=== PATIENT | male | born 1945 | race Caucasian/White ===

== ENCOUNTER 2019-06-12 16:34 | Outpatient (CLI) | payer MEDICARE, SELFPAY ==
--- NOTE | ~2019-06-12 | XR_ITS ---
EXAMINATION: XR hip RT min 2V EXAM DATE: 06/12/2019 16:59 INDICATION: No known recent injury provided at this time. Pain of the right hip. TECHNIQUE: Right hip frontal, 'frog leg' projections for interpretation. Comparison is made to prior examination from 03/19/2018. FINDINGS: There is moderate to severe right hip osteoarthritis with complete loss of the joint space superiorly. There is subchondral cyst formation at both the acetabulum and femoral head, appears to h ave progressed compared to prior study. There are no acute fractures or dislocations identified. The re is no subcutaneous gas. The soft tissue is unremarkable. There are no radiopaque foreign bodies . IMPRESSION: Moderate to severe right hip osteoarthritis. Reviewed, dictated and finalized at location A.
--- NOTE | 2019-06-12 16:51 | ECG_ITS ---
Measurements Intervals [place] Rate: 52 P: 40 AR: 190 QRS: 7 QRSD: 102 T: 26 QT: 445 QTc: 416 Interpretive Statements SINUS BRADYCARDIA BORDERLINE ECG Electronically Signed On 06-12-2019 17:25:45 CDT by Duane Quiroz D.O.
== END 2019-06-12 16:35 | disposition home or self-care (01) ==
LOC: CHSIMG 16:39
PROVIDERS: PCP Internal Medicine; Visit Provider Internal Medicine
DX: I49.9 Cardiac arrhythmia, unspecified (principal); M25.551 Pain in right hip
CPT/HCPCS: 73502; 93005

== ENCOUNTER 2019-08-19 10:49 | Outpatient (RCR) | payer MEDICARE, SELFPAY ==
--- NOTE | 2019-08-19 15:04 | PTOPEVAL ---
Thank you for referring Wellington Villarreal Sr. to [facility]. Please review, sign, date and return this plan of care SKYE. I agree with and certify that the following plan of care is medically necessary. Referring Physician Date Admitting Provider: Attending Provider: PHYSICIAN NOT ON STAFF Referring Provider: *PT Outpatient Evaluation Start: 08/19/19 11:04 Freq: Status: Active Protocol: Document 08/19/19 11:05 MARYELLEN (Rec: 08/19/19 11:53 MARYELLEN [id number]) Therapy Assessment Status Assessment Status Assessment Status Evaluation Evaluation Information Problem Diagnosis right SHAHID Onset 08/10/18 Subjective Information Pt. reports that he got rid of Query Text:As Reported By Patient/ his walker several days ago. Family He reports that he has been self sufficient for most things since surgery. He reports that his most difficult tasks are long distance walking. He reports that he has not returned to driving. 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 He reports that his goal is to return to walking normal. Prior Level of Function Activity Level (Last 3 Months) Occupation business senior civil engineer Hand Dominance Right Activity of Daily Living Ability Independent Indoor/Home Mobility Independent Community Mobility Independent Stairs Ability Independent Functional Cognition (Planning, Shopping Independent , Taking Medications) Cooking Yes Cleaning Yes Laundry Yes Shopping Yes Driving Yes Pain Assessment Pain Scale Pain Scale Used Numeric (1 - 10) Self Report Pain Assessment Right Hip(s) Reported Pain Level 1 Pain Frequency Continuous Pain Aggravating Factors Exercise/Activity Pain Score Pain Score 1: Self Report Lower Extremity Muscle Strength Testing General Lower Extremity Strength Gross Lower Extremity Strength right hip flexion 4-/5, left hip flexion 5/5, right hip abduction 3-/5, left hip abduction 4/5, bilateral knee flexion 5/5, bilateral knee exetnsion 5/5, bilateral ankle
== END 2019-09-12 13:16 | disposition home or self-care (01) ==
LOC: CHSPT 10:49
PROVIDERS: PCP Internal Medicine
DX: M16.11 Unilateral primary osteoarthritis, right hip (principal); Z47.1 Aftercare following joint replacement surgery; Z96.641 Presence of right artificial hip joint
CPT/HCPCS: 97110; 97112; 97161

== ENCOUNTER 2019-12-25 08:35 | Outpatient (CLI) | payer MEDICARE, SELFPAY ==
--- NOTE | ~2019-12-25 | CT_ITS ---
EXAMINATION: CTA chest DATE: 12/25/2019 09:52 INDICATION: Thoracic aortic aneurysm TECHNIQUE: Computed tomographic angiography (CTA) of the chest was performed with 100 mL Omnipque-350 intravenous contrast. Maximum intensity projection 3D-reconstructions of the aorta and other arterie s were constructed by the technologist on a separate workstation. The dose-length product (DLP) was 5 35.77 mGy-cm. Automated exposure control and iterative reconstruction technique were employed. COMPARISON: 07/02/2018 FINDINGS: There is fusiform enlargement of the ascending thoracic aorta which measures 4.5 cm in maxi mum dimension. There is no dissection. The pulmonary arteries are well-opacified without evidence of pulmonary embolism. No pathologically enlarged thoracic lymph nodes are identified. The heart size is normal. There is mild dependent atelectasis. There is moderate thoracic spondylosis. IMPRESSION: 1. Stable fusiform aneurysm of the ascending thoracic aorta. No dissection. Reviewed, dictated and finalized at location A. [facility] ADMINISTRATOR
[2019-12-25 09:02] LABS: Estimated Glomerular Filt Rate > 60
== END 2019-12-25 08:36 | disposition home or self-care (01) ==
LOC: CHSIMG 08:37
PROVIDERS: PCP Internal Medicine; Visit Provider Internal Medicine
DX: I71.2 Thoracic aortic aneurysm, without rupture (principal)
CPT/HCPCS: 71275; Q9965

== ENCOUNTER 2020-03-19 08:41 | Outpatient (CLI) | payer MEDICARE, SELFPAY | END 2020-03-19 08:42 | disposition home or self-care (01) | LOC: CHSLAB 08:43 | PROVIDERS: PCP Internal Medicine; Visit Provider Specialist | DX: L82.1 Other seborrheic keratosis (principal) | CPT/HCPCS: 88305 ==

== ENCOUNTER 2020-12-14 07:23 | Outpatient (CLI) | payer MEDICARE, SELFPAY ==
--- NOTE | ~2020-12-14 | CT_ITS ---
EXAMINATION: CTA chest EXAM DATE: 12/14/2020 08:28 INDICATION: Thoracic aorta aneurysm F/u up for thoracic AA x 4 years. TECHNIQUE: Spiral CT of the chest following intravenous injection of 75 mL Omnipaque 350. Axial, cor onal and sagittal images of the chest were reviewed. Coronal maximum intensity pixel images of chest reviewed. Maximum intensity projection 3-D reconstructions of the aorta were created by the amaya styles on dedicated workstation. The dose-length product (DLP) for this examination was 419.37 mGy-cm . The exposure was tailored according to patient size (auto mA exposure control), and iterative tracey nstruction (ASIR) was used as additional dose reduction technique. Comparison is made to prior examin ation from 12/25/2019, 08/18/2015. FINDINGS: The aortic root measures 4.3 cm in diameter, and the ascending aorta measures 4.7 cm in doyle meter. These dimensions are unchanged compared to previous examinations when measured at same locatio ns. There are no central pulmonary emboli. The descending thoracic aorta is normal in caliber. There is mild emphysema. Small amount of basilar subpleural banding, lungs otherwise clear. There are no p leural or pericardial effusions. Tracheobronchial tree is patent. There is no mediastinal, hilar or axillary lymphadenopathy. There is no pneumothorax. Heart normal in size. No evidence of cor onary arterial calcification. Upper abdomen is unremarkable. Kaem-ci-covejwev IMPRESSION: 1. Stable ascending aortic 4.7 cm aneurysm. 2. Mild emphysema. Reviewed, dictated and finalized at location B.
[2020-12-14 07:43] LABS: Estimated Glomerular Filt Rate > 60
== END 2020-12-14 07:24 | disposition home or self-care (01) ==
LOC: CHSIMG 07:25
PROVIDERS: PCP Internal Medicine; Visit Provider Internal Medicine
DX: I71.2 Thoracic aortic aneurysm, without rupture (principal)
CPT/HCPCS: 71275; Q9967

== ENCOUNTER 2021-09-12 10:55 | Outpatient (CLI) | payer MEDICARE, SELFPAY ==
--- NOTE | ~2021-09-12 | CT_ITS ---
EXAMINATION: CTA chest PE protocol DATE: 09/12/2021 14:55 INDICATION: Elevated D-Dimer, SOB, light headed, dizziness TECHNIQUE: Computed tomography angiography (CTA) of the chest was performed with 100 mL Omnipaque-350 intravenous contrast timed to evaluate the pulmonary arteries. Coronal maximum intensity projection 3D-reconstructions were created by the technologist. The dose-length product (DLP) was 538.71 mGy-cm. Automated exposure control and iterative reconstruction technique were employed. COMPARISON: 12/14/2020. FINDINGS: Study quality: Adequate. Pulmonary arteries: No pulmonary emboli detected. Thoracic aorta: Aortic root measures 4.4 cm. Ascending aorta measures 4.7 cm. Lung parenchyma and airways: Senescent changes with minimal bibasilar scar/atelectasis. Thoracic inlet, axillae and chest wall: Unremarkable. Mediastinum: Normal. Heart and pericardium: Normal. Coronary artery calcifications: Mild. Pleura: Unremarkable. Upper abdomen: No significant finding. Bones: No acute osseous finding. IMPRESSION: No CT evidence of acute pulmonary embolus. Stable 4.7 cm ascending aortic aneurysm. Reviewed, dictated and finalized at location K. IMPRESSION: No CT evidence of acute pulmonary embolus. Stable 4.7 cm ascending aortic aneur ysm.
--- NOTE | ~2021-09-12 | XR_ITS ---
EXAMINATION: XR chest 2V 09/12/2021 12:03 INDICATION: Dizziness and shortness of breath PROCEDURE: 2 view chest COMPARISON: Comparison to multiple prior studies sequentially, with oldest reviewed study dated 08/03. FINDINGS: The lungs are clear. The cardiomediastinal silhouette is within normal limits. There are no pleural effusions. There is no pneumothorax suspected. IMPRESSION: 1: NO ACUTE CARDIOPULMONARY DISEASE. Reviewed, dictated and finalized at location A.
--- NOTE | 2021-09-12 11:34 | ECG_ITS ---
Measurements Intervals [place] Rate: 53 P: 13 WV: 176 QRS: -20 QRSD: 105 T: 8 QT: 428 QTc: 403 Interpretive Statements SINUS BRADYCARDIA VENTRICULAR PREMATURE COMPLEX INFERIOR INFARCT, AGE INDETERMINATE BASELINE ARTIFACT- I, III ABNORMAL ECG Electronically Signed On 09-12-2021 12:22:02 CDT by Duane Quiroz D.O.
[2021-09-12 12:24] LABS: Add Urine Microscopic? NO; Appearance Urine Clear (Clear); Basophils Absolute Auto 0.05 K/mm3 (0.00-0.10); Basophils Percent Auto 0.8 % (0.0-1.0); Bilirubin Urine Negative (Negative); Blood Urine Negative (Negative); Color Urine Yellow (Yellow); Eosinophils Percent Auto 3.2 % (1.0-6.0); Glucose Urine UA Negative (Negative); Hematocrit 37.6 % (37.0-46.0); Immature Granulocyte Absolute 0.06 K/mm3 (0.00-0.00); Immature Granulocyte Percent A 0.9 % (0.0-0.0); Ketones Urine Negative (Negative); Leukocyte Esterase Ur Negative (Negative); Lymphocytes Absolute Auto 1.22 K/mm3 (1.10-4.50); Lymphocytes Percent Auto 19.3 % (18.0-42.0); Mean Corpuscular HGB Conc 31.9 g/dL (32.0-36.0); Mean Corpuscular Hemoglobin 33.3 pg (27.0-31.0); Mean Corpuscular Volume 104.4 fL (78.0-102.0); Mean Platelet Volume 10.7 fl (8.7-11.0); Monocytes Absolute Auto 0.65 K/mm3 (0.10-0.90); Monocytes Percent Auto 10.3 % (2.0-11.0); Neutrophils Absolute Auto 4.2 K/mm3 (1.7-7.2); Neutrophils Percent Auto 65.5 % (50.0-70.0); Nitrate Urine Negative (Negative); Platelet Count Result 241 K/mm3 (150-420); Protein Urine Negative (Negative); Red Cell Distribution Width 13.5 % (11.6-14.4); Specific Grav Ur 1.025 (1.010-1.020); Urobilinogen Urine 0.2 mg/dL (0.2-1.0); White Blood Count 6.3 K/mm3 (4.8-10.8)
[2021-09-12 12:42] LABS: D Dimer 0.62 mg/L (0.19-0.50)
[2021-09-12 13:01] LABS: SARS-CoV-2 RNA PCR Negative (Negative)
[2021-09-12 13:04] LABS: Alanine Aminotransferase 20 U/L (16-63); Albumin Level 3.7 g/dL (3.4-5.0); Alkaline Phosphatase 68 U/L (46-116); Anion Gap 6 mmol/L (8-16); Aspartate Amino Transferase 20 U/L (15-37); Bilirubin,Total 0.5 mg/dL (0.00-1.00); Blood Urea Nitrogen 27 mg/dL (7-18); Calcium 9.2 mg/dL (8.5-10.1); Carbon Dioxide 30 mmol/L (21-32); Chloride 106 mmol/L (98-108); Creatine Kinase 102 U/L (39-308); Estimated Glomerular Filt Rate > 60; Glucose 93 mg/dL (70-99); Magnesium 2.8 mg/dL (1.8-2.4); Osmolality Calculated 299 mOsm/kg (285-295); Potassium 4.5 mmol/L (3.5-5.1); Sodium 142 mmol/L (136-145); Thyroid Stimulating Hormone 1.03 uIU/mL (0.36-3.74); Total Protein 7.2 g/dL (6.4-8.2); Troponin I 9.9 ng/L (0.00-60.4)
[2021-09-12 13:44] LABS: Ferritin 353 ng/mL (26-388); Iron 84 ug/dL (65-175); Percent Iron Saturation 29 % (12-57)
== END 2021-09-12 10:56 | disposition home or self-care (01) ==
PROVIDERS: PCP Nurse Practitioner Family; Visit Provider Nurse Practitioner Family
DX: R42 Dizziness and giddiness (principal); I95.9 Hypotension, unspecified; R06.02 Shortness of breath; D64.9 Anemia, unspecified; R53.83 Other fatigue; R79.1 Abnormal coagulation profile; Z20.822 Contact with and (suspected) exposure to COVID-19
CPT/HCPCS: 36415; 71046; 71275; 80053; 81003; 82550; 82553; 82728; 83540; 83550; 83735; 84443; 84484; 85025; 85380; 87086; 93005; C9803; Q9967; U0003; U0005

== ENCOUNTER 2021-09-19 08:54 | Outpatient (CLI) | payer MEDICARE, SELFPAY | END 2021-09-19 08:55 | disposition home or self-care (01) | PROVIDERS: PCP Internal Medicine; Visit Provider Internal Medicine | DX: R00.1 Bradycardia, unspecified (principal) | CPT/HCPCS: 93270 ==

== ENCOUNTER 2022-08-23 06:17 | Day surgery (SDC) | payer MEDICARE, SELFPAY ==
[2022-08-18 12:16] VITALS: BMI 27.7
[2022-08-23 06:56] VITALS: BP 125/76; PULSE 80; RESP 20; TEMP 36.5; O2SAT 100; BMI 27.8
[2022-08-23] MEDS: LACTATED RINGERS 1,000 ML 150 ML IV CONT (07:09)
--- NOTE | 2022-08-23 07:45 | WPDANESEPPF ---
Anes - Initial Pre Proc Eval Procedure: Operation Date: 08/23/22 08:30 Proposed Procedures p Screening Colonoscopy - Wellington Tapia DO Date/Time: 08/23/22 07:45 Surgeon: Wellington Tapia DO Pre Op Diagnosis: neoplasm screening Patient Data Age: 77 Gender: M Height: 1.63 m Weight: 73.5 kg Last Vital Signs Temp 97.7 F 08/23/22 06:56 Pulse 80 08/23/22 06:56 Resp 20 08/23/22 06:56 BP 125/76 08/23/22 06:56 Pulse Ox 100 08/23/22 06:56 O2 Del Method Room Air 08/23/22 06:56 Allergies Allergy/AdvReac Type Severity Reaction Status Date / Time No Known Allergies Allergy Verified 08/23/22 06:55 Home Medications Medication Instructions Recorded Confirmed Type ascorbate calcium (vitamin C) 500 500 mg PO DAILY 03/31/19 08/18/22 History mg tablet hydrochlorothiazide 12.5 mg capsule 12.5 mg PO DAILY 03/31/19 08/18/22 History lisinopril 20 mg tablet 20 mg PO DAILY 03/31/19 08/18/22 History lovastatin 10 mg tablet 10 mg PO DAILY 03/31/19 08/18/22 History metoprolol succinate 25 mg 25 mg PO DAILY 03/31/19 08/18/22 History tablet,extended release 24 hr Patient hx anesthesia problems: none Family hx anesthesia problems: none Results Review: All pre-operative results and documents have been reviewed as part of the pre-operative evaluation. 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 HTN (hypertension) Hyperlipidemia Impaired fasting glucose Kidney stones Male erectile dysfunction Presbycusis Sleep apnea Testicular hypofunction Third degree hemorrhoids Thoracic aortic aneurysm Tinea unguium Surgical History Surgical History H/O colonoscopy H/O hemorrhoidectomy 1984 History of right hip replacement Left cataract removed Pituitary tumor removed Family History Family History Father Hypertension Mother Lung cancer Sibling Diabetes mellitus Renal failure Grandparent Diabetes mellitus Cerebrovascular accident Social History Social History Smoking status: Never smoker Alcohol intake: never Substance use: never Substance use type: does not use Living arrangements: alone Occupation/Education: occupation Additional occupation/education comments: [employer] Gender identity (if verbalized by the patient): Male Spiritual care concerns: No Anes - Eval Final PreProcedure Day of Procedure 08/23/22 07:45 Patient weight: normal Heart: regular rate and rhythm Lungs: clear to auscultation Airway: Mallampati scale class II Neurological: alert and oriented Last oral intake: >/= 8 hours ASA classification: III Emergent: no Anesthetic plan: proceed Anesthesia type and monitoring: general GIVS and standard monitoring Results Review: All pre-operative results and documents have been reviewed as part of the pre-operative evaluation. Informed Consent: The patient's anesthetic plan and its attendant risks and benefits were discussed with the patient/family/POA. Questions were solicited and answers provided to the satisfaction of the patient/family/POA.
--- NOTE | 2022-08-23 08:21 | PM.IMHP ---
H&P: HPI History of Present Illness Date/Time: 08/23/22 08:21 Chief Complaint: Screening colonoscopy Narrative: this is a 77-year-old man who presents for a colonoscopy. His last colonoscopy was about 11 years ago. He complaints of occasional hemorrhoid problems but denies any hematochezia or melena. He denies any family history of colon cancer. Review of Systems Review of Systems: All systems reviewed & are unremarkable except as noted in HPI and below Constitutional: Constitutional: Denies chills, Denies fever(s), Denies headache(s) and Denies weight loss Eyes: Eyes: Denies change in vision ENT: Denies dizziness, Denies headache(s), Denies neck mass and Denies throat swelling Cardiovascular: Cardiovascular: Denies chest pain, Denies lightheadedness and Denies dyspnea Respiratory: Respiratory: Denies cough, Denies dyspnea and Denies wheezing Gastrointestinal: Gastrointestinal: Denies abdominal pain, Denies change in bowel habits, Denies nausea and Denies vomiting Genitourinary: Genitourinary: Denies hematuria and Denies dysuria Musculoskeletal: Musculoskeletal: Reports as per HPI Integumentary/Breasts: Skin/Breast: Reports as per HPI Neurologic: Denies dizziness and Denies headache(s) Allergic/Immunologic: Allergic/Immunologic: Denies throat swelling and Denies wheezing [facility] Past Medical History Medical History Anemia 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 HTN (hypertension) Hyperlipidemia Impaired fasting glucose Kidney stones Male erectile dysfunction Presbycusis Sleep apnea Testicular hypofunction Third degree hemorrhoids Thoracic aortic aneurysm Tinea unguium Surgical History Surgical History H/O colonoscopy H/O hemorrhoidectomy 1984 History of right hip replacement Left cataract removed Pituitary tumor removed Family History Family History Father Hypertension Mother Lung cancer Sibling Diabetes mellitus Renal failure Grandparent Diabetes mellitus Cerebrovascular accident Social History Social History Smoking status: Never smoker Alcohol intake: never Substance use: never Substance use type: does not use Living arrangements: alone Occupation/Education: occupation Additional occupation/education comments: [employer] Gender identity (if verbalized by the patient): Male Spiritual care concerns: No Meds Home Medications and Allergies Home Medications Medication Instructions Recorded Confirmed Type ascorbate calcium (vitamin C) 500 500 mg PO DAILY 03/31/19 08/18/22 History mg tablet hydrochlorothiazide 12.5 mg capsule 12.5 mg PO DAILY 03/31/19 08/18/22 History lisinopril 20 mg tablet 20 mg PO DAILY 03/31/19 08/18/22 History lovastatin 10 mg tablet 10 mg PO DAILY 03/31/19 08/18/22 History metoprolol succinate 25 mg 25 mg PO DAILY 03/31/19 08/18/22 History tablet,extended release 24 hr Allergies Allergy/AdvReac Type Severity Reaction Status Date / Time No Known Allergies Allergy Verified 08/23/22 06:55 Vital Signs Vital Signs - 24 hr 08/23/22 06:56 Temperature 36.5 C Pulse Rate 80 Respiratory Rate 20 Blood Pressure 125/76 Pulse Oximetry 100 Oxygen Delivery Room Air Exam Const: General: no acute distress and alert Orientation/consciousness: patient oriented x3 HENMT: Head: normocephalic and atraumatic Ears: hearing grossly normal bilaterally Face/Nose/Sinus: Normal nares present Mouth: Yes Normal oral and palatal mucosa present Eyes: Periorbital: periorbital findings normal Sclera: sclerae normal EOM: EOMs intact bilaterally Neck: Neck: normal visual inspection, no lymphadenopathy and trachea midline Chest: Chest palpation & inspection: n
[2022-08-23 08:48] VITALS: BP 122/65; PULSE 51; RESP 18; O2SAT 99
[2022-08-23 09:00] VITALS: BP 122/71; PULSE 57; RESP 23; O2SAT 100
[2022-08-23 09:10] VITALS: BP 140/76; PULSE 57; RESP 21; O2SAT 100
== END 2022-08-23 09:18 | disposition home or self-care (01) ==
PROVIDERS: PCP Internal Medicine; Visit Provider Surgery
PROC: 0DJD8ZZ Inspection of Lower Intestinal Tract, Via Natural or Artificial Opening Endoscopic (ICD-10-PCS; CPT 45378; principal; 2022-08-23 08:30)
DX: Z12.11 Encounter for screening for malignant neoplasm of colon (principal); K57.30 Diverticulosis of large intestine without perforation or abscess without bleeding; K64.8 Other hemorrhoids; I10 Essential (primary) hypertension; G47.30 Sleep apnea, unspecified; I71.20 Thoracic aortic aneurysm, without rupture, unspecified
CPT/HCPCS: G0121; J2704; J7120

== ENCOUNTER 2022-09-18 08:20 | Outpatient (CLI) | payer MEDICARE, SELFPAY ==
--- NOTE | ~2022-09-18 | CT_ITS ---
EXAMINATION: CTA chest PE protocol DATE: 09/18/2022 09:53 INDICATION: Thoracic aortic aneurysm TECHNIQUE: Computed tomography (CT) pulmonary angiogram of the chest was performed with 100 mL Omnipa que-350 intravenous contrast. Additional 3D reconstructions utilizing coronal maximum intensity proje ction (MIP) were performed. Automated exposure control and iterative reconstruction technique were em ployed. The dose-length product was 474.11 mGy-cm. COMPARISON: 09/12/2021 FINDINGS: Excellent contrast opacification of the pulmonary arteries. There is mild streak artifact from dense contrast in the superior vena cava and right atrium. Mild scattered respiratory motion artifact which does not significantly limit evaluation. No pulmonary embolism. No pneumonia, pulmonary edema or ple ural effusion. Mild cardiomegaly. No pericardial effusion. Unchanged ascending thoracic aortic aneury sm which measures up to 4.7 cm in maximal diameter tapering to 3.7 x 3.4 cm at the arch immediately f ollowing the takeoff of the left subclavian artery. No pathologically enlarged thoracic lymphadenopat hy. Visualized upper abdomen is unremarkable. Moderate thoracic spondylosis. IMPRESSION: 1. No pulmonary embolism or other acute cardiopulmonary disease. 2. Unchanged 4.7 cm ascending thoracic aortic aneurysm. Reviewed, dictated and finalized at location B.
[2022-09-18 08:49] LABS: Estimated Glomerular Filt Rate > 60
== END 2022-09-18 08:21 | disposition home or self-care (01) ==
LOC: CHSIMG 08:21
PROVIDERS: PCP Internal Medicine; Visit Provider Internal Medicine
DX: I71.20 Thoracic aortic aneurysm, without rupture, unspecified (principal)
CPT/HCPCS: 71275; Q9967

== ENCOUNTER 2023-03-27 11:21 | Outpatient (CLI) | payer MEDICARE, SELFPAY ==
--- NOTE | 2023-04-30 09:50 | P.PCNHOL_ITS ---
Holter/Event Monitor Holter/Event Monitor Date of procedure: 03/27/23 Holter/Event Procedure: Event Monitor Indications: Syncope Conclusion: 1. 30 day event monitor between 03/27/23-04/25/23. This is an event-triggered m onitor only. There are 40 available transmissions for analysis. 2. Underlying rhythm is sinus rhythm. HR range 47-100 bpm in available transmissions. 3. There are occasional premature supraventricular complexes. No supraventricular tachycardia. 4. There are occasional premature ventricular complexes. No ventricular tachycardia. 5. No significant pauses greater than 2 seconds. 6. Patient reports 9 episodes of symptoms of heart racing, shortness of breath, and symptom other than listed which demonstrate the above.
== END 2023-03-27 11:22 | disposition home or self-care (01) ==
LOC: CHSCARD 11:23
PROVIDERS: PCP Internal Medicine; Visit Provider Internal Medicine
DX: R55 Syncope and collapse (principal)
CPT/HCPCS: 93270

== ENCOUNTER 2023-04-06 09:08 | Outpatient (CLI) | payer MEDICARE, SELFPAY ==
[2023-04-06 09:56] LABS: Alanine Aminotransferase 25 U/L (16-63); Albumin Level 3.8 g/dL (3.4-5.0); Alkaline Phosphatase 65 U/L (46-116); Anion Gap 6 mmol/L (8-16); Aspartate Amino Transferase 23 U/L (15-37); Bilirubin,Total 0.6 mg/dL (0.00-1.00); Blood Urea Nitrogen 16 mg/dL (7-18); Calcium 8.7 mg/dL (8.5-10.1); Carbon Dioxide 32 mmol/L (21-32); Chloride 106 mmol/L (98-108); Estimated Glomerular Filt Rate > 60; Glucose 89 mg/dL (70-99); Magnesium 2.2 mg/dL (1.8-2.4); Osmolality Calculated 298 mOsm/kg (285-295); Potassium 4.2 mmol/L (3.5-5.1); Sodium 144 mmol/L (136-145); Total Protein 6.8 g/dL (6.4-8.2)
== END 2023-04-06 09:09 | disposition home or self-care (01) ==
LOC: CHSLAB 09:11
PROVIDERS: PCP Internal Medicine; Visit Provider Internal Medicine
DX: R55 Syncope and collapse (principal); I10 Essential (primary) hypertension; R00.1 Bradycardia, unspecified
CPT/HCPCS: 36415; 80053; 83735

== ENCOUNTER 2023-04-30 10:34 | Outpatient (CLI) | payer MEDICARE, SELFPAY ==
[2023-04-30 11:23] LABS: Anion Gap 8 mmol/L (8-16); Blood Urea Nitrogen 25 mg/dL (7-18); Calcium 9.1 mg/dL (8.5-10.1); Carbon Dioxide 30 mmol/L (21-32); Chloride 105 mmol/L (98-108); Estimated Glomerular Filt Rate > 60; Glucose 89 mg/dL (70-99); Osmolality Calculated 299 mOsm/kg (285-295); Potassium 4.4 mmol/L (3.5-5.1); Sodium 143 mmol/L (136-145)
== END 2023-04-30 10:35 | disposition home or self-care (01) ==
LOC: CHSLAB 10:36
PROVIDERS: PCP Internal Medicine; Visit Provider Internal Medicine
DX: I10 Essential (primary) hypertension (principal)
CPT/HCPCS: 36415; 80048

== ENCOUNTER 2023-10-05 20:07 | Emergency (ER) | payer MEDICARE, SELFPAY ==
[2023-10-05 20:07] VITALS: PULSE 0
--- NOTE | 2023-10-05 20:14 | PC.NURSE ---
ACLS protocol continued per Dr. Tatum. Call was placed to family, this RN and Dr. Tatum spoke with [place] (sister/POA). Patient is a DNR
--- NOTE | 2023-10-05 20:38 | ED.CPR ---
HPI - CPR General Stated Complaint: Cardiac event Time Seen by Provider: 10/05/23 20:34 Source: EMS Mode of arrival: EMS History of Present Illness HPI narrative: patient arrived to the ED by ambulance with CPR in progress. EMT reported HAVING A CALL THAT PATIENT WITNESSED ARREST AFTER GETTING OUT OF HIS CAR WITH AGONAL BREATHING ,LAYING DOWN ON THE GROUND. ON ARRIVAL EMT FOUND THAT THE PD WAS DOING RESUSCITATION, PATIENT WAS UNRESPONSIVE, PULSELESS, CPR WAS IN PROGRESS, EPINEPHRINE WAS GIVEN, PATIENT WAS PE ALL THE TIME FOR THE LAST 15 MINUTES PRIOR TO ARRIVAL TO THE EMERGENCY ROOM. UNKNOWN DURATION BETWEEN PATIENT HAVING TROUBLE BREATHING AND POLICE RESUSCITATION AND EMT ARRIVAL. . NO FAMILY MEMBER OR SIGNIFICANT OTHER AT THE BEDSIDE AT THIS TIME. PATIENT HAVE A LMA IN PLACE. Related Data Home Medications Medication Instructions Recorded Confirmed ascorbate calcium (vitamin C) 500 500 mg PO DAILY 03/31/19 12/18/22 mg tablet hydrochlorothiazide 12.5 mg capsule 12.5 mg PO DAILY 03/31/19 12/18/22 lisinopril 20 mg tablet 20 mg PO DAILY 03/31/19 12/18/22 lovastatin 10 mg tablet 10 mg PO DAILY 03/31/19 12/18/22 metoprolol succinate 25 mg 25 mg PO DAILY 03/31/19 12/18/22 tablet,extended release 24 hr Allergies Allergy/AdvReac Type Severity Reaction Status Date / Time No Known Allergies Allergy Verified 12/14/22 09:20 Review of Systems Review of Systems: ROS unobtainable: Yes unobtainable due to medical condition PMFSH Past Medical History Medical History Anemia 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 HTN (hypertension) Hyperlipidemia Impaired fasting glucose Kidney stones Male erectile dysfunction Presbycusis Sleep apnea Testicular hypofunction Third degree hemorrhoids Thoracic aortic aneurysm Tinea unguium Surgical History Surgical History H/O colonoscopy H/O hemorrhoidectomy 1984 History of right hip replacement Left cataract removed Pituitary tumor removed Family History Family History Father Hypertension Mother Lung cancer Sibling Diabetes mellitus Renal failure Grandparent Diabetes mellitus Cerebrovascular accident Social History Social History Smoking status: Never smoker Alcohol intake: current Alcohol use details: socially Substance use: never Substance use type: does not use Living arrangements: alone Occupation/Education: occupation Additional occupation/education comments: [employer] Gender identity (if verbalized by the patient): Male Spiritual care concerns: No Exam Narrative: GENERAL APPEARANCE: WELL-DEVELOPED, WELL-NOURISHED SKIN: MOTTLED SKIN HEAD: NORMOCEPHALIC, NONTRAUMATIC EYES: CLEAR CONJUNCTIVA PUPILS DILATED, NOT REACTIVE TO LIGHT ENT: LMA IN PLACE NECK EXAM, NO C-COLLAR ON CHEST AND RESPIRATORY: NO RESPIRATORY EFFORTS HEART: NO HEART SOUNDS ABDOMEN: SOFT, , NO ORGANOMEGALY VASCULAR: NO PERIPHERAL PULSES MUSCULOSKELETAL: NO SIGNS OF TRAUMA NEUROLOGIC: IN CARDIAC ARREST Procedures Intubation Intubation #1: Intubation Date: 10/05/23 Intubation Time: 20:52 Time out performed: Yes (2) sedative: none Laryngoscope: fiber optic video scope Tube Size (cm): 7.5 Method of Intubation: orotracheal Number of Attempts: 1 Tube Placement Confirmation: visualized tube passing through cords, equal breath sounds bilaterally and confirmatio
--- NOTE | 2023-10-05 20:54 | PC.NURSE ---
body released by [facility] coroner gage Bazan to release to [facility] or home.
--- NOTE | 2023-10-05 23:17 | PC.NURSE ---
awaiting call back from [facility] about reaching out to family. Patient was registered organ donor for [place] and is able to donate tissue.
--- NOTE | 2023-10-06 03:04 | PC.NURSE ---
Markus- with [facility] called back, [facility] will be here to get body for transport to [facility]. Family aware and agreeable.
== END 2023-10-06 04:08 | disposition expired ==
PROVIDERS: Emergency Provider Emergency Medicine
DX: I46.9 Cardiac arrest, cause unspecified (principal); I10 Essential (primary) hypertension
CPT/HCPCS: 31500; 92950; 99285; J0171; J7030